=== PATIENT | male | born 1975 | race Caucasian/White ===

== ENCOUNTER 2017-08-25 08:16 | Inpatient (IN) ==
[2017-08-25] MEDS ORDERED: NITROGLYCERIN SL 0.4 MG TABLET SL PRN (08:31)
[2017-08-25] MEDS ORDERED: ASPIRIN 325 MG TABLET PO STA (08:31)
[2017-08-25] MEDS ORDERED: ENOXAPARIN 80 MG/0.8 ML SYRINGE SUBCUT STA (08:34)
[2017-08-25] MEDS ORDERED: NITROGLYCERIN 2% OINT 1 INCH/GM PACK TOP STA (08:34)
[2017-08-25] MEDS ORDERED: ONDANSETRON 4 MG/2 ML VIAL IV STA (08:37)
[2017-08-25] MEDS ORDERED: MORPHINE 2 MG/1 ML SYRINGE IV STA ×2 (08:37→10:03)
[2017-08-25] MEDS ORDERED: NITROGLYCERIN 2% OINT 1 INCH/GM PACK TOP ONE (08:50)
[2017-08-25] MEDS ORDERED: MORPHINE 2 MG/1 ML SYRINGE ONE ×3 (08:51→10:20)
[2017-08-25] MEDS ORDERED: ENOXAPARIN 80 MG/0.8 ML SYRINGE SUBCUT ONE (08:51)
[2017-08-25] MEDS ORDERED: ONDANSETRON 4 MG/2 ML VIAL ONE (08:51)
[2017-08-25] MEDS ORDERED: ASPIRIN 325 MG TABLET ONE (08:51)
[2017-08-25 09:29] LABS: Basophils % 0.7 % (0.0-0.8); Eosinophils # 0.1 10*3/uL (0.0-0.87); Eosinophils % 1.7 % (0.00-10.9); Hematocrit 47.4 VOL% (42.0-52.0); Hemoglobin 16.3 GM/DL (14.0-18.0); Immature Granulocytes % 0.7 %; Immature Granulocytes Absolute 0.04 #; Lymphocytes # 1.4 10*3/uL (1.4-4.0); Lymphocytes % 23.8 % (21.2-54.2); Mean Corpuscular HGB Conc 34.4 GM/DL (32-36); Mean Corpuscular Hemoglobin 31 PG (27-34); Mean Corpuscular Volume 89.4 FL (87-102); Mean Platelet Volume 9.7 FL (9.6-12.0); Monocytes # 0.7 10*3/uL (0.11-0.8); Monocytes % 12.6 % (1.7-12.7); Neutrophils # 3.5 10*3/uL (1.4-7.4); Neutrophils % 60.5 % (38.7-73.9); Platelet Count 225 T/CUMM (130-400); Red Cell Distribution Width 12.1 % (9.3-17.3); White Blood Count 5.8 T/CUMM (4-12)
[2017-08-25 09:37] LABS: PT Patient Result 10.1 SECS; Partial Thromboplastin Time 26.5 SECS (0-40)
[2017-08-25 09:43] LABS: Barbiturates Screen,Urine Negative (Negative); Benzodiazepines Screen,Urine Negative (Negative); Cannabinoid Screen,Urine Negative (Negative); Opiate Screen,Urine Negative (Negative); Phencyclidine Screen,Urine Negative (Negative)
[2017-08-25 09:51] LABS: Albumin 4.4 G/DL (3.4-5.0); Bilirubin,Total 0.4 MG/DL (0.2-1.0); Calcium 8.5 MG/DL (8.5-10.1); Osmolality,Calculated 275.7 MOS/KG (273-304); Total Protein 7.2 G/DL (6.4-8.3)
[2017-08-25 10:12] LABS: Amorphous Crystals,Urine Occasional /HPF (Few); Apearance,Urine CLEAR (Clear); Bilirubin,Urine Negative (Negative); Blood, Urine Negative (Negative); Glucose,Urine (UA) Negative (Negative); Ketones,Urine Negative (Negative); Mucus,Urine Occasional /LPF (Occasional); Nitrite,Urine Negative (Negative); Protein,Urine Negative; RBC,Urine 1 /HPF (0-4); Squamous Epithelial Cell,Urine Occasional /HPF (0-10); Urine Color Yellow (Yellow); Urine Urobilinogen < 2.0 EU/DL (0.2-1.0); WBC,Urine 1 /HPF (0-6)
[2017-08-25] MEDS ORDERED: diphenhydrAMINE CAP 25 MG CAPSULE PO ONE (10:17)
[2017-08-25] MEDS ORDERED: POTASSIUM CHLORIDE RIDER 10 MEQ in PREMIX 1 EACH IV PRN (10:17)
[2017-08-25] MEDS ORDERED: DIAZEPAM 5 MG TABLET PO ONE (10:17)
[2017-08-25] MEDS ORDERED: MAGNESIUM SULF RIDER 2 GM in PREMIX 1 EACH IV PRN (10:17)
[2017-08-25] MEDS ORDERED: LIDOCAINE 1% 20 ML VIAL ONE (10:25)
[2017-08-25] MEDS ORDERED: VERAPAMIL 5 MG/2 ML VIAL ONE (10:25)
[2017-08-25] MEDS ORDERED: NITROGLYCERIN DRIP 50 MG/250 ML BOTTLE IV ONE (10:25)
[2017-08-25] MEDS ORDERED: diphenhydrAMINE CAP 50 MG CAPSULE ONE (10:33)
[2017-08-25] MEDS ORDERED: DIAZEPAM 5 MG TABLET ONE (10:33)
[2017-08-25] MEDS ORDERED: MIDAZOLAM 2 MG/2 ML VIAL ONE (10:46)
[2017-08-25] MEDS ORDERED: HYDROmorphone 2 MG/1 ML VIAL ONE (10:46)
[2017-08-25] MEDS ORDERED: SODIUM CHLORIDE 0.9% 1,000 ML IV STA (10:50)
[2017-08-25] MEDS ORDERED: ADENOSINE 90 MG/30 ML VIAL IV ONE (11:09)
[2017-08-25] MEDS: NICOTINE 21 MG/24 HR PATCH TRANSDERM SCH (15:42)
[2017-08-25] MEDS: ROSUVASTATIN 20 MG TABLET PO SCH (15:42)
[2017-08-25] MEDS: CARVEDILOL 6.25 MG TABLET PO SCH (20:31)
[2017-08-25] MEDS: FAMOTIDINE 20 MG TABLET PO SCH (20:31)
[2017-08-26 06:05] LABS: Basophils # 0.1 10*3/uL (0.0-0.2); Basophils % 0.8 % (0.0-0.8); Eosinophils # 0.2 10*3/uL (0.0-0.87); Eosinophils % 2.6 % (0.00-10.9); Hematocrit 45.4 VOL% (42.0-52.0); Hemoglobin 15.1 GM/DL (14.0-18.0); Immature Granulocytes % 0.5 %; Immature Granulocytes Absolute 0.03 #; Lymphocytes # 2.2 10*3/uL (1.4-4.0); Lymphocytes % 33.9 % (21.2-54.2); Mean Corpuscular HGB Conc 33.3 GM/DL (32-36); Mean Corpuscular Hemoglobin 30 PG (27-34); Mean Corpuscular Volume 91.2 FL (87-102); Mean Platelet Volume 10.3 FL (9.6-12.0); Monocytes # 0.8 10*3/uL (0.11-0.8); Monocytes % 11.8 % (1.7-12.7); Neutrophils # 3.3 10*3/uL (1.4-7.4); Neutrophils % 50.4 % (38.7-73.9); Platelet Count 229 T/CUMM (130-400); Red Blood Count 4.98 MC/CUMM (3.8-5.5); Red Cell Distribution Width 12.2 % (9.3-17.3); White Blood Count 6.4 T/CUMM (4-12)
[2017-08-26 06:38] LABS: Calcium 8.3 MG/DL (8.5-10.1); Osmolality,Calculated 277.5 MOS/KG (273-304); Potassium 4.3 MMOL/L (3.5-5.1)
[2017-08-26] MEDS: FAMOTIDINE 20 MG TABLET PO SCH ×2 (09:20→21:03)
[2017-08-26] MEDS: ROSUVASTATIN 20 MG TABLET PO SCH (09:20)
[2017-08-26] MEDS: CARVEDILOL 6.25 MG TABLET PO SCH ×2 (09:20→21:02)
[2017-08-26] MEDS: ASPIRIN EC 81 MG TABLET PO SCH (09:21)
[2017-08-26] MEDS: NICOTINE 21 MG/24 HR PATCH TRANSDERM SCH (09:21)
[2017-08-26] MEDS ORDERED: HEPARIN DRIP 25,000 UNITS/500 ML PREMIX IV SCH (11:00)
[2017-08-26] MEDS: LISINOPRIL 5 MG TABLET PO SCH ×2 (11:31→21:03)
[2017-08-26] MEDS: ENOXAPARIN 80 MG/0.8 ML SYRINGE SUBCUT SCH (11:31)
[2017-08-27] MEDS: ROSUVASTATIN 20 MG TABLET PO SCH (08:40)
[2017-08-27] MEDS: LISINOPRIL 5 MG TABLET PO SCH ×2 (08:41→21:44)
[2017-08-27] MEDS: FAMOTIDINE 20 MG TABLET PO SCH ×2 (08:41→21:45)
[2017-08-27] MEDS: CARVEDILOL 6.25 MG TABLET PO SCH ×3 (08:41→21:51)
[2017-08-27] MEDS: ASPIRIN EC 81 MG TABLET PO SCH (08:42)
[2017-08-27] MEDS: NICOTINE 21 MG/24 HR PATCH TRANSDERM SCH (08:42)
[2017-08-27] MEDS: ENOXAPARIN 80 MG/0.8 ML SYRINGE SUBCUT SCH (11:40)
[2017-08-27] MEDS ORDERED: SODIUM CHLORIDE 0.9% 1,000 ML IV SCH (12:30)
[2017-08-27] MEDS: ZOLPIDEM 5 MG TABLET PO PRN (23:01)
[2017-08-28] MEDS: CARVEDILOL 6.25 MG TABLET PO SCH ×2 (09:00→20:59)
[2017-08-28] MEDS: ROSUVASTATIN 20 MG TABLET PO SCH (09:01)
[2017-08-28] MEDS: LISINOPRIL 5 MG TABLET PO SCH ×2 (09:01→20:52)
[2017-08-28] MEDS: ASPIRIN EC 81 MG TABLET PO SCH (09:02)
[2017-08-28] MEDS: FAMOTIDINE 20 MG TABLET PO SCH ×2 (09:02→20:52)
[2017-08-28] MEDS: NICOTINE 21 MG/24 HR PATCH TRANSDERM SCH (09:02)
[2017-08-28] MEDS: CHLORHEXIDINE 4% SOLN 118 ML BOTTLE TOP SCH ×3 (10:38→21:03)
[2017-08-28] MEDS: CHLORHEXIDINE 0.12% ORAL RINSE 60 ML BOTTLE SWISH/SPIT SCH ×2 (10:39→20:59)
[2017-08-28] MEDS ORDERED: DIAZEPAM 5 MG TABLET PO ONE (10:44)
[2017-08-28] MEDS: ENOXAPARIN 80 MG/0.8 ML SYRINGE SUBCUT SCH (12:42)
[2017-08-28] MEDS: ZOLPIDEM 5 MG TABLET PO PRN (20:52)
[2017-08-29] MEDS ORDERED: PAPAVERINE 60 MG/2 ML VIAL ONE (05:21)
[2017-08-29] MEDS ORDERED: TISSUE ADHESIVE 1 EACH APPLICATOR TOP ONE (05:21)
[2017-08-29] MEDS ORDERED: VANCOMYCIN 1,000 MG VIAL ONE (05:21)
[2017-08-29] MEDS ORDERED: DIAZEPAM 5 MG TABLET PO ONE (06:00)
[2017-08-29] MEDS ORDERED: CEFUROXIME INJ 1,500 MG in SYRINGE 1 EACH IV ONE (06:00)
[2017-08-29] MEDS ORDERED: HEPARIN/NACL 0.9% 2 UNITS/ML 500 ML IV ONE (06:18)
[2017-08-29] MEDS ORDERED: NITROGLYCERIN DRIP 50 MG/250 ML BOTTLE IV ONE ×2 (06:18→10:43)
[2017-08-29] MEDS ORDERED: TRANEXAMIC ACID 1,000 MG/10 ML VIAL IV ONE (06:19)
[2017-08-29 07:34] LABS: ABG Base Excess -0.9 MMOL/L (-2.5-2.5); ABG HCO3 23.7 MMOL/L (20-26); ABG Oxygen Saturation 99.8 % (95-100); ABG PCO2 37.7 MM HG (35-48); ABG PH 7.402 (7.35-7.45); ABG TCO2 19.8 MMOL/L (23-27); Glucose Heart Surgery 111 MG/DL (74-106); Hematocrit Heart Surgery 48.2 PERCENT (42-52); Hemoglobin Heart Surgery 15.7 G/DL (14.0-18.0); Ionized Calcium Arterial 1.14 MMOL/L (1.21-1.46); PCO2 Patient Temp Arterial 37.7 MMHG; PH Patient Temp Arterial 7.402; Patient Temperature 37 CELCIUS; Potassium Heart/CVR 4.4 MMOL/L (3.5-5.1); Sodium Heart/CVR 137 MMOL/L (135-145)
[2017-08-29 08:36] LABS: Apearance,Urine CLEAR (Clear); Bilirubin,Urine Negative (Negative); Blood, Urine Negative (Negative); Glucose,Urine (UA) Negative (Negative); Ketones,Urine Negative (Negative); Mucus,Urine Occasional /LPF (Occasional); Nitrite,Urine Negative (Negative); Protein,Urine Negative; RBC,Urine <1 /HPF (0-4); Urine Color Yellow (Yellow); Urine Specific Gravity 1.011 (1.001-1.035); Urine Urobilinogen < 2.0 EU/DL (0.2-1.0); WBC,Urine <1 /HPF (0-6)
[2017-08-29 09:16] LABS: Hematocrit Heart Surgery 31.3 PERCENT (42-52); Hemoglobin Heart Surgery 10.1 G/DL (14.0-18.0); PCO2 Patient Temp Venous 32.3 MM HG; PH Patient Temp Venous 7.46; PO2 Patient Temp Venous 34.7 MM HG; Potassium Heart/CVR 6.9 MMOL/L (3.5-5.1); VBG Base Excess -0.3 MEQ/L (0-4); VBG HCO3 23.8 MEQ/L (24-28); VBG Oxygen Saturation 77.2 %; VBG PCO2 35.5 MMHG (41-51); VBG PH 7.431; VBG PO2 39.9 MMHG (17-40)
[2017-08-29 09:46] LABS: Hematocrit Heart Surgery 34.1 PERCENT (42-52); PCO2 Patient Temp Venous 37.8 MM HG; PH Patient Temp Venous 7.419; PO2 Patient Temp Venous 36.4 MM HG; VBG Base Excess 0.3 MEQ/L (0-4); VBG HCO3 24.2 MEQ/L (24-28); VBG Oxygen Saturation 71.7 %; VBG PCO2 37.8 MMHG (41-51); VBG PH 7.419; VBG PO2 36.4 MMHG (17-40)
[2017-08-29 09:48] LABS: Potassium Heart/CVR 6.5 MMOL/L (3.5-5.1)
[2017-08-29] MEDS ORDERED: methylPREDNISolone SOD SUC 1,000 MG/8 ML VIAL ONE (10:08)
[2017-08-29] MEDS ORDERED: SODIUM BICARBONATE 50 MEQ/50 ML SYRINGE IV ONE ×2 (10:08→10:43)
[2017-08-29] MEDS ORDERED: PROTAMINE SULFATE 250 MG/25 ML VIAL IV ONE (10:08)
[2017-08-29] MEDS ORDERED: DEXTROSE 5% KCL 20 MEQ 20 MEQ/1,000 ML BAG IV ONE (10:08)
[2017-08-29] MEDS ORDERED: HEPARIN 10,000 UNIT/10 ML VIAL ONE (10:08)
[2017-08-29] MEDS ORDERED: ALBUMIN 25% 25 GM/100 ML VIAL IV ONE (10:08)
[2017-08-29] MEDS ORDERED: MAGNESIUM SULFATE 1 GM/2 ML VIAL ONE (10:08)
[2017-08-29] MEDS ORDERED: FUROSEMIDE 20 MG/2 ML VIAL ONE (10:09)
[2017-08-29] MEDS ORDERED: MANNITOL 12.5 GM/50 ML VIAL IV ONE (10:09)
[2017-08-29] MEDS ORDERED: PHENYLEPHRINE 10 MG/1 ML VIAL IV ONE ×2 (10:09→11:23)
[2017-08-29 10:14] LABS: ABG HCO3 22.8 MMOL/L (20-26); ABG PH 7.425 (7.35-7.45); ABG TCO2 19.1 MMOL/L (23-27); Glucose Heart Surgery 240 MG/DL (74-106); Ionized Calcium Arterial 1.38 MMOL/L (1.21-1.46); PH Patient Temp Arterial 7.425; Patient Temperature 37 CELCIUS; Potassium Heart/CVR 5.1 MMOL/L (3.5-5.1); Sodium Heart/CVR 129 MMOL/L (135-145)
[2017-08-29] MEDS ORDERED: EPINEPHrine 1 MG/10 ML SYRINGE ONE (10:43)
[2017-08-29] MEDS ORDERED: CALCIUM CHLORIDE 1,000 MG/10 ML SYRINGE IV ONE (10:43)
[2017-08-29] MEDS ORDERED: MIDAZOLAM 2 MG/2 ML VIAL ONE (10:54)
[2017-08-29] MEDS: NITROGLYCERIN DRIP 50 MG/250 ML BOTTLE IV SCH (11:05)
[2017-08-29] MEDS: SODIUM CHLORIDE 0.45% 1,000 ML IV SCH ×2 (11:05)
[2017-08-29] MEDS ORDERED: MAGNESIUM SULF RIDER 4 GM in PREMIX 1 EACH IV PRN (11:17)
[2017-08-29] MEDS ORDERED: POTASSIUM CHLORIDE RIDER 20 MEQ in PREMIX 1 EACH IV PRN (11:17)
[2017-08-29] MEDS ORDERED: ONDANSETRON 4 MG/2 ML VIAL IV PRN (11:17)
[2017-08-29] MEDS ORDERED: SODIUM CHLORIDE 0.9% 250 ML IV PRN (11:17)
[2017-08-29] MEDS ORDERED: INSULIN REGULAR 100 UNIT/ML IV PRN (11:17)
[2017-08-29] MEDS ORDERED: MIDAZOLAM 2 MG/2 ML VIAL IV PRN (11:17)
[2017-08-29] MEDS ORDERED: POTASSIUM CHLORIDE RIDER 10 MEQ in PREMIX 1 EACH IV PRN (11:17)
[2017-08-29] MEDS ORDERED: ACETAMINOPHEN 650 MG SUPP RECTAL PRN (11:17)
[2017-08-29] MEDS ORDERED: CALCIUM CHLORIDE 1,000 MG/10 ML SYRINGE IV PRN (11:17)
[2017-08-29] MEDS ORDERED: MAGNESIUM SULF RIDER 2 GM in PREMIX 1 EACH IV PRN (11:17)
[2017-08-29] MEDS ORDERED: DEXTROSE 50% 25 GM/50 ML VIAL IV PRN ×2 (11:17)
[2017-08-29] MEDS ORDERED: CHLORHEXIDINE 4% SOLN 118 ML BOTTLE TOP PRN (11:17)
[2017-08-29] MEDS ORDERED: ALBUMIN 5% 12.5 GM in PREMIX 1 EACH IV PRN (11:17)
[2017-08-29] MEDS ORDERED: CALCIUM CHLORIDE 1,000 MG/10 ML VIAL IV ONE (11:21)
[2017-08-29] MEDS ORDERED: MIDAZOLAM 10 MG/2 ML VIAL ONE (11:22)
[2017-08-29] MEDS ORDERED: ePHEDrine 50 MG/ML AMP ONE (11:22)
[2017-08-29] MEDS ORDERED: SEVOFLURANE 1 UNIT/15 MINUTE INH ONE (11:22)
[2017-08-29] MEDS ORDERED: ROCURONIUM 100 MG/10 ML VIAL IV ONE (11:23)
[2017-08-29] MEDS ORDERED: MINERAL OIL/PETROLATUM OPH OINT 3.5 GM TUBE ONE (11:23)
[2017-08-29] MEDS ORDERED: ESMOLOL 100 MG/10 ML VIAL IV ONE (11:23)
[2017-08-29] MEDS ORDERED: ETOMIDATE 40 MG/20 ML VIAL IV ONE (11:23)
[2017-08-29] MEDS ORDERED: LACTATED RINGERS 1,000 ML IV ONE (11:24)
[2017-08-29] MEDS ORDERED: SODIUM CHLORIDE 0.9% 1,000 ML IV ONE (11:24)
[2017-08-29 11:27] LABS: ABG HCO3 24.4 MMOL/L (20-26); ABG Oxygen Saturation 98.2 % (95-100); ABG PCO2 37.4 MM HG (35-48); ABG PH 7.418 (7.35-7.45); ABG TCO2 20.7 MMOL/L (23-27); Glucose Heart Surgery 169 MG/DL (74-106); Hematocrit Heart Surgery 43.1 PERCENT (42-52)
[2017-08-29 11:29] LABS: Basophils % 0.3 % (0.0-0.8); Eosinophils # 0.1 10*3/uL (0.0-0.87); Eosinophils % 0.5 % (0.00-10.9); Hemoglobin 13.7 GM/DL (14.0-18.0); Immature Granulocytes % 0.9 %; Immature Granulocytes Absolute 0.15 #; Lymphocytes # 1.4 10*3/uL (1.4-4.0); Lymphocytes % 9.1 % (21.2-54.2); Mean Corpuscular HGB Conc 34.3 GM/DL (32-36); Mean Corpuscular Hemoglobin 30 PG (27-34); Mean Corpuscular Volume 88.9 FL (87-102); Monocytes # 1.3 10*3/uL (0.11-0.8); Monocytes % 8.4 % (1.7-12.7); Neutrophils # 12.8 10*3/uL (1.4-7.4); Neutrophils % 80.8 % (38.7-73.9); Platelet Count 203 T/CUMM (130-400); Red Cell Distribution Width 12.1 % (9.3-17.3); White Blood Count 15.8 T/CUMM (4-12)
[2017-08-29 11:38] LABS: PT Patient Result 10.7 SECS; Partial Thromboplastin Time 27.1 SECS (0-40)
[2017-08-29] MEDS: MORPHINE 2 MG/1 ML SYRINGE IV PRN (11:40)
[2017-08-29 11:49] LABS: Lactic Acid 2.4 MMOL/L (0.4-2.0)
[2017-08-29 12:01] LABS: Blood Urea Nitrogen 19 MG/DL (7-18); Calcium 9.7 MG/DL (8.5-10.1); Glucose 156 MG/DL (74-106); Osmolality,Calculated 277.8 MOS/KG (273-304); Potassium 4.1 MMOL/L (3.5-5.1); Sodium 137 MMOL/L (136-145)
[2017-08-29 12:45] LABS: ABG Base Excess -0.1 MMOL/L (-2.5-2.5); ABG HCO3 24.3 MMOL/L (20-26); ABG Oxygen Saturation 97.3 % (95-100); ABG PCO2 44.9 MM HG (35-48); ABG PH 7.365 (7.35-7.45); Glucose Heart Surgery 174 MG/DL (74-106); Hematocrit Heart Surgery 44.9 PERCENT (42-52); Hemoglobin Heart Surgery 14.7 G/DL (14.0-18.0); Potassium Heart/CVR 3.9 MMOL/L (3.5-5.1)
[2017-08-29] MEDS: INSULIN REGULAR DRIP 100 ML IV SCH (13:00)
[2017-08-29] MEDS: MORPHINE 10 MG/1 ML VIAL IV PRN ×4 (13:20→23:52)
[2017-08-29 14:47] LABS: ABG Base Excess -0.8 MMOL/L (-2.5-2.5); ABG HCO3 23.7 MMOL/L (20-26); ABG Oxygen Saturation 97.4 % (95-100); ABG PCO2 48.2 MM HG (35-48); ABG PH 7.336 (7.35-7.45); ABG PO2 98.6 MM HG (80-95); ABG TCO2 22.2 MMOL/L (23-27); Glucose Heart Surgery 175 MG/DL (74-106); Hematocrit Heart Surgery 45.4 PERCENT (42-52); Hemoglobin Heart Surgery 14.8 G/DL (14.0-18.0); Potassium Heart/CVR 4.6 MMOL/L (3.5-5.1)
[2017-08-29] MEDS ORDERED: METOPROLOL TARTRATE 5 MG/5 ML VIAL IV ONE (14:53)
[2017-08-29] MEDS: METOPROLOL TARTRATE 5 MG/5 ML VIAL IV PRN ×2 (14:54→23:52)
[2017-08-29] MEDS: KETOROLAC 15 MG/1 ML VIAL IV PRN (17:15)
[2017-08-29] MEDS: CEFUROXIME INJ 1,500 MG in SYRINGE 1 EACH IV SCH (18:35)
[2017-08-29] MEDS: INSULIN REGULAR 100 UNIT/ML SUBCUT SCH (21:12)
[2017-08-29] MEDS: CHLORHEXIDINE 0.12% ORAL RINSE 60 ML BOTTLE SWISH/SPIT SCH (21:30)
[2017-08-30] MEDS: INSULIN REGULAR 100 UNIT/ML SUBCUT SCH ×6 (01:20→21:44)
[2017-08-30] MEDS: SODIUM CHLORIDE 0.45% 1,000 ML IV SCH ×2 (01:21→09:33)
[2017-08-30] MEDS: MORPHINE 10 MG/1 ML VIAL IV PRN ×3 (03:07→11:03)
[2017-08-30 04:13] LABS: Basophils % 0.1 % (0.0-0.8); Hematocrit 41.7 VOL% (42.0-52.0); Hemoglobin 14.8 GM/DL (14.0-18.0); Immature Granulocytes % 0.8 %; Immature Granulocytes Absolute 0.18 #; Lymphocytes # 0.9 10*3/uL (1.4-4.0); Lymphocytes % 4.2 % (21.2-54.2); Mean Corpuscular HGB Conc 35.5 GM/DL (32-36); Mean Corpuscular Hemoglobin 32 PG (27-34); Mean Corpuscular Volume 88.9 FL (87-102); Mean Platelet Volume 10.1 FL (9.6-12.0); Monocytes # 2.3 10*3/uL (0.11-0.8); Monocytes % 10.6 % (1.7-12.7); Neutrophils # 18.4 10*3/uL (1.4-7.4); Neutrophils % 84.3 % (38.7-73.9); Platelet Count 243 T/CUMM (130-400); Red Blood Count 4.69 MC/CUMM (3.8-5.5); Red Cell Distribution Width 12.3 % (9.3-17.3); White Blood Count 21.9 T/CUMM (4-12)
[2017-08-30 04:30] LABS: Calcium 8.8 MG/DL (8.5-10.1); Osmolality,Calculated 272.1 MOS/KG (273-304); Potassium 4.7 MMOL/L (3.5-5.1)
[2017-08-30 04:52] LABS: Band Neutrophils 1 % (0-10); Giant Platelets Few; Hypochromasia 1+; Lymphocytes 2 % (20-55); Platelet Estimate Adequate; Segmented Neutrophils 83 % (50-85); Total Cells Counted 100
[2017-08-30] MEDS: KETOROLAC 15 MG/1 ML VIAL IV PRN ×3 (05:42→21:48)
[2017-08-30] MEDS ORDERED: FUROSEMIDE 40 MG/4 ML VIAL IV ONE (06:37)
[2017-08-30] MEDS: CEFUROXIME INJ 1,500 MG in SYRINGE 1 EACH IV SCH ×2 (07:16→21:43)
[2017-08-30] MEDS: CLOPIDOGREL 75 MG TABLET PO SCH (08:34)
[2017-08-30] MEDS: ASPIRIN EC 325 MG TABLET PO SCH (08:34)
[2017-08-30] MEDS: METOPROLOL TARTRATE 25 MG TABLET PO SCH ×2 (08:34→21:44)
[2017-08-30] MEDS: FUROSEMIDE 40 MG TABLET PO SCH (08:34)
[2017-08-30] MEDS: CHLORHEXIDINE 0.12% ORAL RINSE 60 ML BOTTLE SWISH/SPIT SCH ×2 (09:34→21:45)
[2017-08-30] MEDS: NITROGLYCERIN DRIP 50 MG/250 ML BOTTLE IV SCH (11:05)
[2017-08-30] MEDS: INSULIN REGULAR DRIP 100 ML IV SCH (11:55)
[2017-08-30] MEDS: MORPHINE 2 MG/1 ML SYRINGE IV PRN (14:07)
[2017-08-30] MEDS ORDERED: CEFUROXIME INJ 1,500 MG in SYRINGE 1 EACH IV SCH (21:30)
[2017-08-30] MEDS: ATORVASTATIN 40 MG TABLET PO SCH (21:44)
[2017-08-30] MEDS: DOCUSATE SODIUM 100 MG CAPSULE PO SCH (21:44)
[2017-08-31] MEDS: INSULIN REGULAR 100 UNIT/ML SUBCUT SCH ×6 (01:37→21:06)
[2017-08-31 04:59] LABS: Basophils % 0.1 % (0.0-0.8); Eosinophils % 0.1 % (0.00-10.9); Hematocrit 39.1 VOL% (42.0-52.0); Hemoglobin 13.3 GM/DL (14.0-18.0); Immature Granulocytes % 0.6 %; Immature Granulocytes Absolute 0.11 #; Lymphocytes # 1.9 10*3/uL (1.4-4.0); Lymphocytes % 9.9 % (21.2-54.2); Mean Corpuscular Hemoglobin 31 PG (27-34); Mean Corpuscular Volume 89.9 FL (87-102); Mean Platelet Volume 10.4 FL (9.6-12.0); Monocytes # 3.3 10*3/uL (0.11-0.8); Monocytes % 17.3 % (1.7-12.7); Neutrophils # 13.6 10*3/uL (1.4-7.4); Platelet Count 225 T/CUMM (130-400); Red Blood Count 4.35 MC/CUMM (3.8-5.5); Red Cell Distribution Width 12.3 % (9.3-17.3); White Blood Count 18.9 T/CUMM (4-12)
[2017-08-31 05:26] LABS: Calcium 8.7 MG/DL (8.5-10.1); Hypochromasia 1+; Lymphocytes 9 % (20-55); Microcytosis 1+; Platelet Estimate Normal; Potassium 4.4 MMOL/L (3.5-5.1); Segmented Neutrophils 75 % (50-85); Total Cells Counted 100
[2017-08-31 05:32] LABS: Risk Ratio 2.39; VLDL CHOLESTEROL 13.6 MG/DL
[2017-08-31 05:39] LABS: Calcium 8.7 MG/DL (8.5-10.1); Potassium 4.4 MMOL/L (3.5-5.1)
[2017-08-31] MEDS: ASPIRIN EC 325 MG TABLET PO SCH (09:08)
[2017-08-31] MEDS: CLOPIDOGREL 75 MG TABLET PO SCH (09:08)
[2017-08-31] MEDS: DOCUSATE SODIUM 100 MG CAPSULE PO SCH ×2 (09:09→20:53)
[2017-08-31] MEDS: CHLORHEXIDINE 0.12% ORAL RINSE 60 ML BOTTLE SWISH/SPIT SCH ×2 (09:09→20:57)
[2017-08-31] MEDS: FUROSEMIDE 40 MG TABLET PO SCH (09:09)
[2017-08-31] MEDS: BISACODYL 5 MG TABLET PO PRN (09:09)
[2017-08-31] MEDS: METOPROLOL TARTRATE 50 MG TABLET PO SCH ×2 (09:09→20:52)
[2017-08-31] MEDS ORDERED: NICOTINE 21 MG/24 HR PATCH TRANSDERM PRN (10:33)
[2017-08-31] MEDS ORDERED: MAGNESIUM HYDROXIDE SUSP 30 ML UDCUP PO PRN (15:28)
[2017-08-31] MEDS ORDERED: MAGNESIUM HYDROXIDE SUSP 30 ML UDCUP PO ONE (15:28)
[2017-08-31] MEDS ORDERED: METOPROLOL TARTRATE 5 MG/5 ML VIAL IV ONE ×2 (16:19→16:22)
[2017-08-31] MEDS: ATORVASTATIN 40 MG TABLET PO SCH (20:52)
[2017-08-31] MEDS: KETOROLAC 15 MG/1 ML VIAL IV PRN (21:02)
[2017-09-01] MEDS: INSULIN REGULAR 100 UNIT/ML SUBCUT SCH ×3 (04:59→11:37)
[2017-09-01 05:14] LABS: Basophils % 0.3 % (0.0-0.8); Eosinophils % 0.3 % (0.00-10.9); Hematocrit 39.1 VOL% (42.0-52.0); Immature Granulocytes % 0.5 %; Immature Granulocytes Absolute 0.06 #; Lymphocytes # 2.5 10*3/uL (1.4-4.0); Lymphocytes % 21.9 % (21.2-54.2); Mean Corpuscular HGB Conc 33.2 GM/DL (32-36); Mean Corpuscular Hemoglobin 30 PG (27-34); Mean Corpuscular Volume 90.5 FL (87-102); Mean Platelet Volume 10.1 FL (9.6-12.0); Monocytes # 1.7 10*3/uL (0.11-0.8); Monocytes % 15.3 % (1.7-12.7); Neutrophils % 61.7 % (38.7-73.9); Platelet Count 237 T/CUMM (130-400); Red Blood Count 4.32 MC/CUMM (3.8-5.5); Red Cell Distribution Width 12.2 % (9.3-17.3); White Blood Count 11.3 T/CUMM (4-12)
[2017-09-01 06:07] LABS: Calcium 8.5 MG/DL (8.5-10.1); Osmolality,Calculated 276.7 MOS/KG (273-304); Potassium 4.2 MMOL/L (3.5-5.1)
[2017-09-01] MEDS: DOCUSATE SODIUM 100 MG CAPSULE PO SCH (08:56)
[2017-09-01] MEDS: ASPIRIN EC 325 MG TABLET PO SCH (08:56)
[2017-09-01] MEDS: METOPROLOL TARTRATE 50 MG TABLET PO SCH (08:56)
[2017-09-01] MEDS: BISACODYL 5 MG TABLET PO PRN (08:56)
[2017-09-01] MEDS: FUROSEMIDE 40 MG TABLET PO SCH (08:56)
[2017-09-01] MEDS: CLOPIDOGREL 75 MG TABLET PO SCH (08:56)
[2017-09-01] MEDS: CHLORHEXIDINE 0.12% ORAL RINSE 60 ML BOTTLE SWISH/SPIT SCH (08:59)
[2017-09-01 11:58] VITALS: BP 113/74
== END 2017-09-01 15:45 | disposition home health service (06) | DRG 234 ==
LOC: N.ED 08:16 → N.CL 10:40 → N.CC 10:40 → N.CL 10:41 → N.CC 12:27 → N.TELEN 08-26 12:14 → N.CVR 08-29 07:11 → N.ICU 08-29 19:24 → N.TELES 08-30 13:54
PROVIDERS: ADMIT Internal Medicine Cardiovascular Disease; ATTEND Internal Medicine Cardiovascular Disease
PROC: CLCCHCL (ICD-10-PCS; 2017-08-25 11:15)

== ENCOUNTER 2022-02-22 08:56 | Inpatient (IN) ==
[2022-02-22 11:30] LABS: Basophils % 0.2 % (0.0-0.8); Eosinophils # 0.2 10*3/uL (0.0-0.87); Eosinophils % 1.6 % (0.00-10.9); Hematocrit 52.2 VOL% (42.0-52.0); Hemoglobin 17.6 GM/DL (14.0-18.0); Immature Granulocytes % 0.6 %; Immature Granulocytes Absolute 0.07 #; Lymphocytes # 1.3 10*3/uL (1.4-4.0); Lymphocytes % 10.6 % (21.2-54.2); Mean Corpuscular HGB Conc 33.7 GM/DL (32-36); Mean Corpuscular Volume 90.5 FL (87-102); Mean Platelet Volume 9.4 FL (9.6-12.0); Monocytes # 1.5 10*3/uL (0.11-0.8); Monocytes % 12.4 % (1.7-12.7); Neutrophils % 74.6 % (38.7-73.9); Platelet Count 232 T/CUMM (130-400); Red Blood Count 5.77 MC/CUMM (3.8-5.5); Red Cell Distribution Width 12.5 % (9.3-17.3); White Blood Count 12.1 T/CUMM (4-12)
[2022-02-22 11:58] LABS: Albumin 3.8 G/DL (3.4-5.0); Bilirubin,Total 0.8 MG/DL (0.20-1.00); Calcium 8.7 MG/DL (8.5-10.1); Osmolality,Calculated 274.7 MOS/KG (273-304); Potassium 4.3 MMOL/L (3.5-5.1); Total Protein 7.2 G/DL (6.4-8.2)
[2022-02-22] MEDS ORDERED: PIPERACILLIN/TAZOBACTAM 3,375 MG in SODIUM CHLORIDE 0.9% 100 ML IV STA (15:07)
[2022-02-22] MEDS ORDERED: NICOTINE 7 MG/24 HR PATCH TRANSDERM PRN (15:09)
[2022-02-22] MEDS ORDERED: BISACODYL 5 MG TABLET PO PRN (15:13)
[2022-02-22] MEDS ORDERED: ONDANSETRON 4 MG/2 ML VIAL IV PRN ×2 (15:13→18:09)
[2022-02-22] MEDS ORDERED: HYDROmorphone 1 MG/1 ML SYRINGE IV PRN ×2 (15:13→18:03)
[2022-02-22] MEDS ORDERED: ALBUTEROL/IPRATROPIUM 3 ML NEB RESP TX PRN (15:13)
[2022-02-22] MEDS ORDERED: ACETAMINOPHEN 325 MG TABLET PO PRN (15:13)
[2022-02-22] MEDS ORDERED: KETOROLAC 30 MG/1 ML VIAL IV PRN (15:17)
[2022-02-22] MEDS ORDERED: MIDAZOLAM 2 MG/2 ML VIAL ONE (16:38)
[2022-02-22] MEDS ORDERED: propofoL 200 MG/20 ML VIAL IV ONE (16:41)
[2022-02-22] MEDS ORDERED: LIDOCAINE 2% 5 ML VIAL ONE (16:41)
[2022-02-22] MEDS ORDERED: fentaNYL 100 MCG/2 ML VIAL ONE (17:45)
[2022-02-22] MEDS ORDERED: ONDANSETRON 4 MG/2 ML VIAL ONE (17:50)
[2022-02-22] MEDS ORDERED: SEVOFLURANE 1 UNIT/15 MINUTE INH ONE (17:50)
[2022-02-22] MEDS ORDERED: LACTATED RINGERS 1,000 ML IV ONE (17:50)
[2022-02-22] MEDS ORDERED: MEPERIDINE 50 MG/1 ML VIAL ONE (18:06)
[2022-02-22] MEDS ORDERED: MEPERIDINE 25 MG/1 ML VIAL IV PRN (18:09)
[2022-02-22] MEDS: HYDROmorphone 1 MG/1 ML SYRINGE IV PRN ×3 (18:20→22:00)
[2022-02-22] MEDS: PIPERACILLIN/TAZOBACTAM 3,375 MG in SODIUM CHLORIDE 0.9% 100 ML IV SCH (23:46)
[2022-02-23 06:10] LABS: Basophils % 0.2 % (0.0-0.8); Eosinophils # 0.3 10*3/uL (0.0-0.87); Eosinophils % 3.2 % (0.00-10.9); Hematocrit 43.9 VOL% (42.0-52.0); Hemoglobin 14.8 GM/DL (14.0-18.0); Immature Granulocytes % 0.5 %; Immature Granulocytes Absolute 0.05 #; Lymphocytes # 1.5 10*3/uL (1.4-4.0); Lymphocytes % 14.6 % (21.2-54.2); Mean Corpuscular HGB Conc 33.7 GM/DL (32-36); Mean Corpuscular Volume 92.2 FL (87-102); Mean Platelet Volume 9.7 FL (9.6-12.0); Monocytes # 1.5 10*3/uL (0.11-0.8); Neutrophils % 67.5 % (38.7-73.9); Platelet Count 208 T/CUMM (130-400); Red Blood Count 4.76 MC/CUMM (3.8-5.5); Red Cell Distribution Width 12.4 % (9.3-17.3); White Blood Count 10.5 T/CUMM (4-12)
[2022-02-23 06:24] LABS: Calcium 8.3 MG/DL (8.5-10.1); Osmolality,Calculated 273.8 MOS/KG (273-304); Potassium 3.8 MMOL/L (3.5-5.1)
[2022-02-23] MEDS: HYDROmorphone 1 MG/1 ML SYRINGE IV PRN (07:59)
[2022-02-23] MEDS: PIPERACILLIN/TAZOBACTAM 3,375 MG in SODIUM CHLORIDE 0.9% 100 ML IV SCH ×2 (07:59→16:25)
[2022-02-23] MEDS: LACTATED RINGERS 1,000 ML IV SCH ×2 (08:09→08:43)
[2022-02-23] MEDS: PANTOPRAZOLE 40 MG TABLET PO SCH (08:09)
[2022-02-23] MEDS: ASPIRIN EC 81 MG TABLET PO SCH (20:20)
[2022-02-23] MEDS: ROSUVASTATIN 20 MG TABLET PO SCH (20:20)
[2022-02-23] MEDS: METOPROLOL TARTRATE 25 MG TABLET PO SCH (20:21)
[2022-02-24] MEDS: PIPERACILLIN/TAZOBACTAM 3,375 MG in SODIUM CHLORIDE 0.9% 100 ML IV SCH ×4 (01:00→23:38)
[2022-02-24] MEDS: PANTOPRAZOLE 40 MG TABLET PO SCH (09:35)
[2022-02-24] MEDS ORDERED: fentaNYL 100 MCG/2 ML VIAL ONE (10:09)
[2022-02-24] MEDS ORDERED: propofoL 200 MG/20 ML VIAL IV ONE (10:09)
[2022-02-24] MEDS ORDERED: MIDAZOLAM 2 MG/2 ML VIAL ONE (10:09)
[2022-02-24] MEDS ORDERED: LIDOCAINE 2% 5 ML VIAL ONE (10:09)
[2022-02-24] MEDS ORDERED: ONDANSETRON 4 MG/2 ML VIAL ONE (10:49)
[2022-02-24] MEDS ORDERED: SEVOFLURANE 1 UNIT/15 MINUTE INH ONE (10:49)
[2022-02-24] MEDS ORDERED: DEXAMETHASONE 4 MG/1 ML VIAL ONE (10:49)
[2022-02-24] MEDS ORDERED: ACETAMINOPHEN INJ 1,000 MG/100 ML VIAL IV ONE (10:50)
[2022-02-24] MEDS ORDERED: LACTATED RINGERS 1,000 ML IV SCH (11:00)
[2022-02-24] MEDS ORDERED: PROMETHAZINE INJ 25 MG in SODIUM CHLORIDE 0.9% 50 ML IV PRN (11:32)
[2022-02-24] MEDS ORDERED: diphenhydrAMINE 50 MG/1 ML VIAL IV PRN (11:32)
[2022-02-24] MEDS ORDERED: MEPERIDINE 25 MG/1 ML VIAL IV PRN (11:32)
[2022-02-24] MEDS ORDERED: ONDANSETRON 4 MG/2 ML VIAL IV PRN (11:32)
[2022-02-24] MEDS ORDERED: HYDROmorphone 1 MG/1 ML SYRINGE IV PRN (11:32)
[2022-02-24] MEDS: HYDROmorphone 1 MG/1 ML SYRINGE IV PRN ×2 (11:55→12:00)
[2022-02-24] MEDS: LACTATED RINGERS 1,000 ML IV SCH (18:30)
[2022-02-24] MEDS: METOPROLOL TARTRATE 25 MG TABLET PO SCH (20:24)
[2022-02-24] MEDS: ASPIRIN EC 81 MG TABLET PO SCH (20:24)
[2022-02-24] MEDS: ROSUVASTATIN 20 MG TABLET PO SCH (20:24)
[2022-02-25] MEDS: LACTATED RINGERS 1,000 ML IV SCH (06:12)
[2022-02-25] MEDS: PIPERACILLIN/TAZOBACTAM 3,375 MG in SODIUM CHLORIDE 0.9% 100 ML IV SCH (09:21)
[2022-02-25] MEDS: PANTOPRAZOLE 40 MG TABLET PO SCH (09:22)
[2022-02-25 12:59] VITALS: BP 129/82
== END 2022-02-25 16:00 | disposition home health service (06) | DRG 983 ==
LOC: N.EDINP 08:56 → N.ED 08:56 → N.EDINP 16:00 → N.3E 17:48
PROVIDERS: ADMIT Student in an Organized Health Care Education/Training Program; ATTEND Student in an Organized Health Care Education/Training Program